=== PATIENT | male | born 1995 | race Two or more races ===

== ENCOUNTER 2019-12-29 14:32 | Emergency (ER) | payer OTHER ==
[~2019-12-29] VITALS: Ht 167.6 cm; Wt 142.0 kg
== END 2019-12-29 16:16 | disposition home or self-care (01) ==
LOC: ER 14:32
DX: H66.92 Otitis media, unspecified, left ear (principal)

== ENCOUNTER 2020-12-23 16:12 | Emergency (ER) | payer OTHER ==
[~2020-12-23] VITALS: Ht 175.3 cm; Wt 136.1 kg
[2020-12-23] MEDS ORDERED: DULCOLAX5 MG PO (16:57)
[2020-12-23] MEDS ORDERED: DICLOFENAC SODI75 MG PO (16:57)
[2020-12-23] MEDS ORDERED: ANALPRAM HC 2.530 GM RECTAL (16:57)
== END 2020-12-23 17:46 | disposition home or self-care (01) ==
LOC: ER 16:12
DX: K62.89 Other specified diseases of anus and rectum (principal)

== ENCOUNTER 2025-01-26 15:09 | Emergency (ER) | payer OTHER ==
[~2025-01-26] VITALS: Ht 330.2 cm; Wt 108.9 kg
[~2025-01-26 15:09] MED LIST: ANALPRAM HC 2.530 GM RECTAL; DICLOFENAC SODI75 MG PO; DULCOLAX5 MG PO
[2025-01-26] MEDS ORDERED: CEPHALEXIN500 MG PO (18:35)
[2025-01-26] MEDS ORDERED: CEFTRIAXONE SODIUM 1,000 MG VIAL ONE (18:39)
[2025-01-26] MEDS ORDERED: CEFTRIAXONE SODIUM 1,000 MG VIAL IM ONE (18:45)
== END 2025-01-26 18:53 | disposition home or self-care (01) ==
LOC: ER 15:10
DX: L08.9 Local infection of the skin and subcutaneous tissue, unspecified (principal)